=== PATIENT | female | born 1945 | race Caucasian/White ===

== ENCOUNTER 2017-08-12 18:39 | Emergency (ER) | payer OTHER ==
[~2017-08-12] VITALS: Ht 167.6 cm; Wt 128.5 kg
[2017-08-12 19:21] LABS: HEMATOCRIT 40.9 % (36.0-46.0); MCH 29.6 PG (29.0-34.0); MCHC 32.5 G/DL (30.0-36.0); MCV 90.9 FL (83-99); MEAN PLAT.VOLUME 9.2 uM^3 (9.5-12.4); PLATELET COUNT 200 K/uL (156-360); RBC DIS.WIDTH-CV 13.7 % (11.8-14.6); RBC DIS.WIDTH-SD 45.9 % (39-53); WHITE BLOOD COUNT 9.6 K/uL (4.1-10.2)
[2017-08-12 19:33] LABS: CHLORIDE 98 mEq/L (99-109); POTASSIUM 3.7 mEq/L (3.7-5.4); SODIUM 138 mEq/L (136-147)
[2017-08-12 19:35] LABS: GLUCOSE 130 mg/dL (70-99)
[2017-08-12 19:36] LABS: ANION GAP 12 MEQ/L (2-14)
[2017-08-12] MEDS ORDERED: VIGAMOX 0.60 DROP/3 BOTH EYES ×2 (19:36→19:53)
[2017-08-12] MEDS ORDERED: VALTREX1000 MG PO (19:36)
[2017-08-12] MEDS ORDERED: ALPHAGAN P100 DROP/1 BOTH EYES (19:36)
[2017-08-12] MEDS ORDERED: LEVAQUIN750 MG PO (19:36)
[2017-08-12] MEDS ORDERED: DIAMOX250 MG PO (19:36)
[2017-08-12 19:39] LABS: GFR ESTIMATE (CALCULATED) > 59 mL/min/
[2017-08-12 19:40] LABS: UREA NITROGEN (BUN) 15 mg/dL (9-23)
[2017-08-12 20:28] VITALS: BP 134/97
== END 2017-08-12 20:32 | disposition home or self-care (01) ==
LOC: EME 18:39
PROVIDERS: Emergency Medicine
DX: H44.002 Unspecified purulent endophthalmitis, left eye (principal)
CPT/HCPCS: 80048; 83605; 85027; 87040; 87070; 87102; 87205; 99281; 99284; J0713; J1100; J3370